=== PATIENT | female | born 1995 | race Native Hawaiian/Other Pacific Islander ===

== ENCOUNTER 2019-05-14 16:02 | Emergency (ER) | payer MEDICAID, OTHER ==
[~2019-05-14] VITALS: Ht 162.6 cm; Wt 72.7 kg
[2019-05-14] MEDS ORDERED: LIDOCAINE 1% 10 ML VIAL INJ ONE (21:30)
[2019-05-14] MEDS ORDERED: POVIDONE-IODINE 10% 15 ML SOLUTION UD TP ONE (21:30)
[2019-05-14] MEDS ORDERED: ACETAMINOPHEN 500 MG TABLET PO ONE (21:30)
[2019-05-14] MEDS ORDERED: SULFAMETHOX/TRIMETH DS 800-160 MG/TABLET PO ONE (21:30)
[2019-05-14] MEDS ORDERED: CEPHALEXIN MONOHYDRATE 500 MG CAPSULE PO ONE (21:30)
[2019-05-14 22:30] VITALS: BP 135/69
== END 2019-05-14 22:34 | disposition home or self-care (01) ==
LOC: EMS 16:06
DX: N75.0 Cyst of Bartholin's gland (principal)
CPT/HCPCS: 56405; 84703; 99284; J3490

== ENCOUNTER 2019-05-17 19:13 | Emergency (ER) | payer OTHER ==
[~2019-05-17] VITALS: Ht 162.6 cm; Wt 89.5 kg
[2019-05-17 22:23] VITALS: BP 118/70
== END 2019-05-17 23:10 | disposition home or self-care (01) ==
LOC: EMS 19:16
DX: N75.0 Cyst of Bartholin's gland (principal); Z48.00 Encounter for change or removal of nonsurgical wound dressing

== ENCOUNTER 2019-07-14 10:18 | Emergency (ER) | payer OTHER ==
[~2019-07-14] VITALS: Ht 162.6 cm; Wt 90.9 kg
[2019-07-14 10:25] VITALS: BP 129/83
== END 2019-07-14 11:51 | disposition home or self-care (01) ==
LOC: EMS 10:23
DX: K02.9 Dental caries, unspecified (principal)

== ENCOUNTER 2020-06-16 12:45 | Emergency (ER) | payer OTHER ==
[~2020-06-16] VITALS: Ht 162.6 cm; Wt 77.3 kg
[2020-06-16] MEDS ORDERED: IBUP-2759 PO (13:09)
[2020-06-16 13:22] VITALS: BP 117/55
== END 2020-06-16 18:19 | disposition home or self-care (01) ==
LOC: EMS 12:50
DX: N75.0 Cyst of Bartholin's gland (principal); F19.90 Other psychoactive substance use, unspecified, uncomplicated
CPT/HCPCS: 99283; Z7502

== ENCOUNTER 2021-11-10 01:52 | Emergency (ER) | payer OTHER ==
[~2021-11-10] VITALS: Ht 157.5 cm; Wt 81.0 kg
[~2021-11-10 01:52] MED LIST: IBUP-2759 PO
[2021-11-10 02:30] VITALS: BP 127/71
[2021-11-10] MEDS ORDERED: HYDROCODONE/ACETAMINOPHEN 5-325 MG TABLET PO ONE (02:45)
[2021-11-10] MEDS ORDERED: IBUP-1554 PO (02:51)
[2021-11-10] MEDS ORDERED: PENI500T2 PO (02:51)
[2021-11-10] MEDS ORDERED: HYDR-4723 PO (02:51)
== END 2021-11-10 03:08 | disposition home or self-care (01) ==
LOC: EMS 01:52
DX: K08.89 Other specified disorders of teeth and supporting structures (principal); F15.90 Other stimulant use, unspecified, uncomplicated; Z87.42 Personal history of other diseases of the female genital tract; Z98.890 Other specified postprocedural states
CPT/HCPCS: 99283

== ENCOUNTER 2021-12-25 21:57 | Emergency (ER) | payer OTHER ==
[~2021-12-25 21:57] MED LIST changes: +HYDR-4723 PO; +IBUP-1554 PO; -IBUP-2759 PO; +PENI500T2 PO
== END 2021-12-26 00:02 | disposition left against medical advice (07) ==
LOC: EMS 23:59
DX: R42 Dizziness and giddiness (principal); Z53.21 Procedure and treatment not carried out due to patient leaving prior to being seen by health care provider

== ENCOUNTER 2022-01-04 18:45 | Emergency (ER) | payer OTHER ==
[~2022-01-04] VITALS: Ht 162.6 cm; Wt 81.8 kg
[2022-01-04 19:25] VITALS: BP 116/74
[2022-01-04] MEDS ORDERED: LEVO1TAB89 PO (19:28)
== END 2022-01-04 22:36 | disposition left against medical advice (07) ==
LOC: EMS 18:50
DX: Z53.21 Procedure and treatment not carried out due to patient leaving prior to being seen by health care provider (principal)

== ENCOUNTER 2022-01-10 22:10 | Emergency (ER) | payer OTHER ==
[~2022-01-10] VITALS: Ht 162.6 cm; Wt 91.0 kg
[~2022-01-10 22:10] MED LIST changes: +LEVO1TAB89 PO; -PENI500T2 PO
[2022-01-10] MEDS ORDERED: SODIUM CHLORIDE 0.9% 1,000 ML IV ONE (22:30)
[2022-01-10] MEDS ORDERED: LOPERAMIDE HCL 2 MG CAPSULE PO ONE (22:30)
[2022-01-10] MEDS ORDERED: ONDANSETRON HCL 4 MG/2 ML VIAL IVP ONE (22:30)
[2022-01-10] MEDS ORDERED: KETOROLAC TROMETHAMINE 30 MG/ML VIAL IVP ONE (22:30)
[2022-01-10 22:47] LABS: BASOPHILS % (AUTO) 0.6 % (0.0-2.0); EOSINOPHILS % (AUTO) 0.3 % (1.0-6.0); HEMATOCRIT 36.2 % (36-46); HEMOGLOBIN 12.2 g/dL (12.0-16.0); LYMPHOCYTES # (AUTO) 2.1 K/uL (1.0-4.8); LYMPHOCYTES % (AUTO) 19.8 % (22.0-44.0); MEAN CORPUSCULAR HGB CONC 33.7 G/dL (31.0-37.0); MEAN CORPUSCULAR VOLUME 89 fL (80-100); MONOCYTES # (AUTO) 0.8 K/uL (0.1-1.0); MONOCYTES % (AUTO) 7.8 % (2.0-9.0); NEUTROPHILS # (AUTO) 7.6 K/uL (1.8-7.7); NEUTROPHILS % (AUTO) 71.5 % (40.0-70.0); PLATELET COUNT (AUTO) 385 K/uL (150-450); RED BLOOD CELL COUNT(AUTO) 4.06 MIL/uL (4.00-5.20); RED CELL DISTRIBUTION WIDTH 13.7 % (11.5-14.5)
[2022-01-10 22:56] LABS: ANION GAP 11 mmol/L (8-16); CALCIUM, TOTAL 8.6 mg/dL (8.8-10.5); CARBON DIOXIDE 26 mmol/L (22-29); CHLORIDE 104 mmol/L (98-107); CREATININE 0.81 mg/dL (0.60-1.30); GLOMERULAR FILTR. RATE CALC > 60 mL/min (>60); GLUCOSE,RANDOM 73 mg/dL (70-110); POTASSIUM 3.2 mmol/L (3.5-5.1); SODIUM SERUM 141 mmol/L (136-145); UREA NITROGEN, BLOOD 12 mg/dL (7-18)
[2022-01-10 23:08] LABS: ALANINE AMINOTRANSFERASE 26 U/L (12-78); ALBUMIN 3.6 g/dL (3.4-5.0); ALKALINE PHOSPHATASE 56 U/L (46-116); ASPARTATE AMINOTRANSFERASE 20 U/L (15-37); BILIRUBIN,TOTAL 0.4 mg/dL (0.1-1.0); HCG,QUANTITATIVE < 1 mIU/mL (0-6); LIPASE 124 U/L (73-393); TOTAL PROTEIN, SERUM 7.3 g/dL (6.4-8.2)
[2022-01-10] MEDS ORDERED: ONDA-104 PO (23:13)
[2022-01-10] MEDS ORDERED: LOPE-232 PO (23:13)
[2022-01-10 23:47] VITALS: BP 120/82
== END 2022-01-10 23:48 | disposition home or self-care (01) ==
LOC: EMS 22:11
DX: R10.13 Epigastric pain (principal); F22 Delusional disorders; F15.10 Other stimulant abuse, uncomplicated; F10.20 Alcohol dependence, uncomplicated; F17.210 Nicotine dependence, cigarettes, uncomplicated
CPT/HCPCS: 99284; 96374; 96361; 96375; 80053; 83690; 84702; 85025; 36415; J1885; J2405; J7030

== ENCOUNTER 2022-02-27 21:32 | Emergency (ER) | payer OTHER ==
[~2022-02-27] VITALS: Ht 162.6 cm; Wt 82.0 kg
[~2022-02-27 21:32] MED LIST changes: -HYDR-4723 PO; -IBUP-1554 PO; -LEVO1TAB89 PO; +LOPE-232 PO; +ONDA-104 PO
[2022-02-27 22:14] LABS: APPEARANCE,URINE CLEAR (CLEAR); BILIRUBIN,URINE NEGATIVE (NEGATIVE); GLUCOSE, URINE (UA) NEGATIVE (NEGATIVE); KETONES,URINE NEGATIVE (NEGATIVE); LEUKOCYTE ESTERASE ,URINE TRACE (NEGATIVE); NITRATE,URINE POSITIVE (NEGATIVE); OCCULT BLOOD,URINE MODERATE (NEGATIVE); PROTEIN,URINE 30-70 mg/dL (NEGATIVE); SPECIFIC GRAVITIY, URINE 1.031 (1.003-1.030)
[2022-02-27 22:15] LABS: EOSINOPHILS % (AUTO) 0.3 % (1.0-6.0); HEMOGLOBIN 12.9 g/dL (12.0-16.0); LYMPHOCYTES # (AUTO) 2.6 K/uL (1.0-4.8); LYMPHOCYTES % (AUTO) 34.3 % (22.0-44.0); MEAN CORPUSCULAR HEMOGLOBIN 30.6 pg (26.0-34.0); MEAN CORPUSCULAR HGB CONC 33.1 G/dL (31.0-37.0); MEAN CORPUSCULAR VOLUME 92 fL (80-100); MONOCYTES # (AUTO) 0.4 K/uL (0.1-1.0); MONOCYTES % (AUTO) 5.8 % (2.0-9.0); NEUTROPHILS # (AUTO) 4.5 K/uL (1.8-7.7); NEUTROPHILS % (AUTO) 58.6 % (40.0-70.0); PLATELET COUNT (AUTO) 380 K/uL (150-450); RED BLOOD CELL COUNT(AUTO) 4.23 MIL/uL (4.00-5.20); RED CELL DISTRIBUTION WIDTH 14.6 % (11.5-14.5)
[2022-02-27 22:26] LABS: ANION GAP 8 mmol/L (8-16); CALCIUM, TOTAL 9.3 mg/dL (8.8-10.5); CARBON DIOXIDE 31 mmol/L (22-29); CHLORIDE 102 mmol/L (98-107); CREATININE 1.01 mg/dL (0.60-1.30); GLUCOSE,RANDOM 75 mg/dL (70-110); POTASSIUM 3.4 mmol/L (3.5-5.1); SODIUM SERUM 141 mmol/L (136-145); UREA NITROGEN, BLOOD 11 mg/dL (7-18)
[2022-02-27 22:29] LABS: GLOMERULAR FILTR. RATE CALC > 60 mL/min (>60)
[2022-02-27 22:36] LABS: ALANINE AMINOTRANSFERASE 15 U/L (12-78); ALKALINE PHOSPHATASE 76 U/L (46-116); ASPARTATE AMINOTRANSFERASE 11 U/L (15-37); BILIRUBIN,TOTAL 0.3 mg/dL (0.1-1.0); HCG,QUANTITATIVE < 1 mIU/mL (0-6); LIPASE 110 U/L (73-393); TOTAL PROTEIN, SERUM 8.2 g/dL (6.4-8.2)
[2022-02-27 22:47] LABS: BACTERIA,URINE Many /HPF (None Seen)
[2022-02-27 22:48] LABS: CALCIUM OXALATE CRYSTALS,UR Rare /LPF (None Seen); RBC,URINE 0-2 /HPF (0-2)
[2022-02-27 23:23] LABS: AMPHET/METH SCREEN,URINE POSITIVE (NEGATIVE); BARBITURATE SCREEN, URINE NEGATIVE (NEGATIVE); BENZODIAZEPINES SCREEN,URINE NEGATIVE (NEGATIVE); CANNABINOID SCREEN,URINE POSITIVE (NEGATIVE); COCAINE SCREEN,URINE NEGATIVE (NEGATIVE); METHADONE SCREEN, URINE NEGATIVE (NEGATIVE); OPIATE SCREEN,URINE NEGATIVE (NEGATIVE); PHENCYCLIDINE SCREEN,URINE NEGATIVE (NEGATIVE)
[2022-02-27 23:30] VITALS: BP 111/68
[2022-02-27] MEDS ORDERED: CEPH-558 PO (23:43)
[2022-02-27] MEDS ORDERED: DOXY-354 PO (23:43)
[2022-02-27] MEDS ORDERED: METR250 PO (23:43)
[2022-02-27] MEDS ORDERED: ACET-66 PO (23:44)
== END 2022-02-28 00:18 | disposition home or self-care (01) ==
LOC: EMS 21:32
DX: F15.10 Other stimulant abuse, uncomplicated (principal); N39.0 Urinary tract infection, site not specified; F10.20 Alcohol dependence, uncomplicated; F12.90 Cannabis use, unspecified, uncomplicated; F17.210 Nicotine dependence, cigarettes, uncomplicated
CPT/HCPCS: 80053; 81001; 83690; 84702; 84703; 85025; 87086; 99283

== ENCOUNTER 2022-04-19 16:49 | Inpatient (IN) | payer MEDICAID, OTHER ==
[~2022-04-19] VITALS: Ht 162.6 cm; Wt 86.4 kg
[~2022-04-19 16:49] MED LIST changes: +ACET-66 PO; +CEPH-558 PO; +DOXY-354 PO; +METR250 PO
[2022-04-19 18:07] LABS: BASOPHILS % (AUTO) 0.3 % (0.0-2.0); EOSINOPHILS % (AUTO) 0.1 % (1.0-6.0); HEMATOCRIT 40.6 % (36-46); HEMOGLOBIN 13.1 g/dL (12.0-16.0); LYMPHOCYTES # (AUTO) 1.7 K/uL (1.0-4.8); LYMPHOCYTES % (AUTO) 12.7 % (22.0-44.0); MEAN CORPUSCULAR HEMOGLOBIN 29.5 pg (26.0-34.0); MEAN CORPUSCULAR HGB CONC 32.3 G/dL (31.0-37.0); MEAN CORPUSCULAR VOLUME 92 fL (80-100); MONOCYTES # (AUTO) 0.5 K/uL (0.1-1.0); MONOCYTES % (AUTO) 3.6 % (2.0-9.0); NEUTROPHILS # (AUTO) 11.1 K/uL (1.8-7.7); NEUTROPHILS % (AUTO) 83.3 % (40.0-70.0); PLATELET COUNT (AUTO) 419 K/uL (150-450); RED BLOOD CELL COUNT(AUTO) 4.43 MIL/uL (4.00-5.20); RED CELL DISTRIBUTION WIDTH 14.4 % (11.5-14.5)
[2022-04-19 18:17] LABS: ANION GAP 5 mmol/L (8-16); CALCIUM, TOTAL 9.6 mg/dL (8.8-10.5); CARBON DIOXIDE 31 mmol/L (22-29); CHLORIDE 99 mmol/L (98-107); CREATININE 0.98 mg/dL (0.60-1.30); GLOMERULAR FILTR. RATE CALC > 60 mL/min (>60); GLUCOSE,RANDOM 130 mg/dL (70-110); POTASSIUM 4.1 mmol/L (3.5-5.1); SODIUM SERUM 135 mmol/L (136-145); UREA NITROGEN, BLOOD 13 mg/dL (7-18)
[2022-04-19 18:23] LABS: ACETAMINOPHEN < 2 mcg/mL (10-30); ALANINE AMINOTRANSFERASE 18 U/L (12-78); ALBUMIN 4.4 g/dL (3.4-5.0); ALKALINE PHOSPHATASE 81 U/L (46-116); ASPARTATE AMINOTRANSFERASE 15 U/L (15-37); BILIRUBIN,TOTAL 0.5 mg/dL (0.1-1.0); TOTAL PROTEIN, SERUM 8.9 g/dL (6.4-8.2)
[2022-04-19 18:38] LABS: COVID AG,FIA SOURCE NASOPHARYNGEAL
[2022-04-19 18:46] LABS: SALICYLATE 1.2 mg/dL (2.8-20.0)
[2022-04-19] MEDS ORDERED: OLANZapine 5 MG TABLET PO ONE (20:30)
[2022-04-19] MEDS ORDERED: LORazepam 1 MG TABLET PO ONE (20:30)
[2022-04-19] MEDS ORDERED: LORazepam 2 MG TABLET PO PRN (21:15)
[2022-04-19] MEDS ORDERED: HALOPERIDOL 5 MG TABLET PO PRN (21:15)
[2022-04-19] MEDS ORDERED: ZOLPIDEM TARTRATE 10 MG TABLET PO PRN (21:15)
[2022-04-20 01:45] VITALS: BP 145/80
[2022-04-20] MEDS ORDERED: INFLUENZA VIRUS VACCINE QVS 2022-23 (6MO+)/PF 60 MCG/0.5 ML SYRINGE IM. ONE (02:15)
[2022-04-20] MEDS ORDERED: MAG HYDROX/AL HYDROX/SIMETH ES 30 ML SUSPENSION UDCUP PO PRN (10:00)
[2022-04-20] MEDS ORDERED: ACETAMINOPHEN 325 MG TABLET PO PRN (10:00)
[2022-04-20] MEDS ORDERED: GuaiFENesin/D-METHORPHAN [SUGAR-FREE] 200-20MG/10 ML SYRUP UDCUP PO PRN (10:00)
[2022-04-20] MEDS ORDERED: LOPERAMIDE HCL 2 MG CAPSULE PO PRN (10:00)
[2022-04-20] MEDS ORDERED: PROMETHAZINE HCL 25 MG TABLET PO PRN (10:00)
[2022-04-20] MEDS ORDERED: HydrOXYzine PAMOATE 50 MG CAPSULE PO PRN (10:00)
[2022-04-20] MEDS ORDERED: MAGNESIUM HYDROXIDE SUSPENSION 30 ML UDCUP PO PRN (10:00)
[2022-04-20] MEDS ORDERED: TUBERCULIN, PURIFIED PROTEIN DERIVATIVE 5 TU/0.1 ML SYRINGE ID ONE (10:00)
[2022-04-20] MEDS: OLANZapine 10 MG TABLET PO PRN (13:52)
[2022-04-20] MEDS: THIAMINE 100 MG TABLET PO SCH (16:48)
[2022-04-20 16:49] VITALS: BP 98/63
[2022-04-20] MEDS: MELATONIN 5 MG TABLET PO SCH (20:47)
[2022-04-20] MEDS ORDERED: OLANZapine 5 MG RAPDIS TABLET PO SCH (21:00)
[2022-04-21 08:00] VITALS: BP 94/53
[2022-04-21] MEDS: THIAMINE 100 MG TABLET PO SCH ×2 (08:26→16:28)
[2022-04-21] MEDS: FLUoxetine HCL 20 MG CAPSULE PO SCH (08:26)
[2022-04-21] MEDS: MULTIVITAMINS WITH MINERALS, THERAPEUTIC TABLET PO SCH (08:26)
[2022-04-21] MEDS: NALTREXONE HCL 50 MG TABLET PO SCH (08:26)
[2022-04-21] MEDS: OMEGA-3/DHA/EPA/FISH OIL 1,000 MG CAPSULE PO SCH (08:26)
[2022-04-21] MEDS: FOLIC ACID 1 MG TABLET PO SCH (08:26)
[2022-04-21 08:38] LABS: HEMOGLOBIN A1C 5.4 % (3.8-5.6)
[2022-04-21 08:51] LABS: CHOL/HDL RATIO 3.3 (3.9-5.7); FREE T4 (FREE THYROXINE) 1.01 ng/dL (0.76-1.46); THYROID STIMULATING HORMONE 0.66 uIU/mL (0.36-3.74)
[2022-04-21] MEDS: OLANZapine 10 MG RAPDIS TABLET PO SCH (20:35)
[2022-04-21] MEDS: MELATONIN 5 MG TABLET PO SCH (20:35)
[2022-04-22] MEDS: NALTREXONE HCL 50 MG TABLET PO SCH ×2 (08:45→09:00)
[2022-04-22] MEDS: OMEGA-3/DHA/EPA/FISH OIL 1,000 MG CAPSULE PO SCH ×2 (08:46→09:00)
[2022-04-22] MEDS: FLUoxetine HCL 20 MG CAPSULE PO SCH ×2 (08:46→09:00)
[2022-04-22] MEDS: THIAMINE 100 MG TABLET PO SCH ×4 (08:46→17:00)
[2022-04-22] MEDS: FOLIC ACID 1 MG TABLET PO SCH ×2 (08:46→09:00)
[2022-04-22] MEDS: MULTIVITAMINS WITH MINERALS, THERAPEUTIC TABLET PO SCH ×2 (08:46→09:00)
[2022-04-22] MEDS: OLANZapine 10 MG RAPDIS TABLET PO SCH (20:33)
[2022-04-22] MEDS: MELATONIN 5 MG TABLET PO SCH (20:34)
[2022-04-23 08:00] VITALS: BP 98/59
[2022-04-23] MEDS: OMEGA-3/DHA/EPA/FISH OIL 1,000 MG CAPSULE PO SCH (08:13)
[2022-04-23] MEDS: FOLIC ACID 1 MG TABLET PO SCH (08:13)
[2022-04-23] MEDS: NALTREXONE HCL 50 MG TABLET PO SCH (08:15)
[2022-04-23] MEDS: MULTIVITAMINS WITH MINERALS, THERAPEUTIC TABLET PO SCH (08:17)
[2022-04-23] MEDS: FLUoxetine HCL 20 MG CAPSULE PO SCH (08:17)
[2022-04-23] MEDS: THIAMINE 100 MG TABLET PO SCH ×2 (08:17→16:31)
[2022-04-23 16:07] VITALS: BP 105/52
[2022-04-23] MEDS: MELATONIN 5 MG TABLET PO SCH (20:17)
[2022-04-23] MEDS: OLANZapine 10 MG RAPDIS TABLET PO SCH (20:19)
[2022-04-24 08:01] VITALS: BP 129/79
[2022-04-24] MEDS: FOLIC ACID 1 MG TABLET PO SCH (08:15)
[2022-04-24] MEDS: OMEGA-3/DHA/EPA/FISH OIL 1,000 MG CAPSULE PO SCH (08:15)
[2022-04-24] MEDS: FLUoxetine HCL 20 MG CAPSULE PO SCH (08:15)
[2022-04-24] MEDS: NALTREXONE HCL 50 MG TABLET PO SCH (08:15)
[2022-04-24] MEDS: THIAMINE 100 MG TABLET PO SCH ×2 (08:15→16:01)
[2022-04-24] MEDS: MULTIVITAMINS WITH MINERALS, THERAPEUTIC TABLET PO SCH (08:15)
[2022-04-24 16:06] VITALS: BP 108/63
[2022-04-24] MEDS: OLANZapine 10 MG RAPDIS TABLET PO SCH (20:09)
[2022-04-24] MEDS: MELATONIN 5 MG TABLET PO SCH (20:10)
[2022-04-25 06:00] LABS: COVID AG,FIA SOURCE NASAL SWAB
[2022-04-25 08:20] VITALS: BP 97/60
[2022-04-25] MEDS: FLUoxetine HCL 20 MG CAPSULE PO SCH (09:10)
[2022-04-25] MEDS: THIAMINE 100 MG TABLET PO SCH ×2 (09:10→17:09)
[2022-04-25] MEDS: NALTREXONE HCL 50 MG TABLET PO SCH (09:10)
[2022-04-25] MEDS: OMEGA-3/DHA/EPA/FISH OIL 1,000 MG CAPSULE PO SCH (09:10)
[2022-04-25] MEDS: FOLIC ACID 1 MG TABLET PO SCH (09:10)
[2022-04-25] MEDS: MULTIVITAMINS WITH MINERALS, THERAPEUTIC TABLET PO SCH (09:10)
[2022-04-25 16:02] VITALS: BP 106/65
[2022-04-25 20:08] VITALS: BP 130/86
[2022-04-25] MEDS: MELATONIN 5 MG TABLET PO SCH (20:35)
[2022-04-25] MEDS: OLANZapine 10 MG RAPDIS TABLET PO SCH (20:35)
[2022-04-26 08:15] VITALS: BP 98/62
[2022-04-26] MEDS: OMEGA-3/DHA/EPA/FISH OIL 1,000 MG CAPSULE PO SCH (09:08)
[2022-04-26] MEDS: MULTIVITAMINS WITH MINERALS, THERAPEUTIC TABLET PO SCH (09:08)
[2022-04-26] MEDS: THIAMINE 100 MG TABLET PO SCH ×2 (09:08→16:50)
[2022-04-26] MEDS: FOLIC ACID 1 MG TABLET PO SCH (09:08)
[2022-04-26] MEDS: NALTREXONE HCL 50 MG TABLET PO SCH (09:09)
[2022-04-26] MEDS: FLUoxetine HCL 20 MG CAPSULE PO SCH (09:09)
[2022-04-26 16:05] VITALS: BP 96/53
[2022-04-26] MEDS: OLANZapine 10 MG RAPDIS TABLET PO SCH (21:03)
[2022-04-26] MEDS: MELATONIN 5 MG TABLET PO SCH (21:16)
[2022-04-27 08:23] VITALS: BP 132/77
[2022-04-27] MEDS: FLUoxetine HCL 20 MG CAPSULE PO SCH (08:29)
[2022-04-27] MEDS: NALTREXONE HCL 50 MG TABLET PO SCH (08:29)
[2022-04-27] MEDS: MULTIVITAMINS WITH MINERALS, THERAPEUTIC TABLET PO SCH (08:29)
[2022-04-27] MEDS: FOLIC ACID 1 MG TABLET PO SCH (08:30)
[2022-04-27] MEDS: THIAMINE 100 MG TABLET PO SCH ×2 (08:30→16:59)
[2022-04-27] MEDS: OMEGA-3/DHA/EPA/FISH OIL 1,000 MG CAPSULE PO SCH (08:30)
[2022-04-27 16:23] VITALS: BP 95/65
[2022-04-27] MEDS: MELATONIN 5 MG TABLET PO SCH (21:02)
[2022-04-27] MEDS: OLANZapine 10 MG RAPDIS TABLET PO SCH (21:02)
[2022-04-27] MEDS ORDERED: FLUO20CA36 PO (22:57)
[2022-04-27] MEDS ORDERED: OLAN10TA26 PO (22:57)
[2022-04-27] MEDS ORDERED: MELA5TAB40 PO (22:57)
[2022-04-27] MEDS ORDERED: OMEG-135 PO (22:57)
[2022-04-27] MEDS ORDERED: NALT50TA PO (22:57)
[2022-04-28] MEDS: NALTREXONE HCL 50 MG TABLET PO SCH (10:02)
[2022-04-28] MEDS: FOLIC ACID 1 MG TABLET PO SCH (10:02)
[2022-04-28] MEDS: FLUoxetine HCL 20 MG CAPSULE PO SCH (10:02)
[2022-04-28] MEDS: OLANZapine 10 MG TABLET PO PRN (10:03)
[2022-04-28] MEDS: THIAMINE 100 MG TABLET PO SCH (10:03)
[2022-04-28] MEDS: MULTIVITAMINS WITH MINERALS, THERAPEUTIC TABLET PO SCH (10:04)
[2022-04-28] MEDS: OMEGA-3/DHA/EPA/FISH OIL 1,000 MG CAPSULE PO SCH (10:06)
== END 2022-04-28 13:45 | disposition home or self-care (01) | DRG 750 ==
LOC: EMS 16:53 → 3EC 04-20 01:59
PROVIDERS: ADMIT Psychiatry & Neurology Psychiatry; ATTEND Psychiatry & Neurology Psychiatry
DX: F25.9 Schizoaffective disorder, unspecified (principal); R45.851 Suicidal ideations; Z91.199 Patient's noncompliance with other medical treatment and regimen due to unspecified reason; D72.829 Elevated white blood cell count, unspecified; E87.6 Hypokalemia; F15.90 Other stimulant use, unspecified, uncomplicated; F17.210 Nicotine dependence, cigarettes, uncomplicated; I10 Essential (primary) hypertension; F32.A Depression, unspecified; Z55.9 Problems related to education and literacy, unspecified; Z59.9 Problem related to housing and economic circumstances, unspecified; Z63.9 Problem related to primary support group, unspecified; Z65.3 Problems related to other legal circumstances; Z79.899 Other long term (current) drug therapy
CPT/HCPCS: 80053; 80061; 83036; 84439; 84443; 84703; 85025; 86592; 93005; 99285; G0480; G0481; Q9967

== ENCOUNTER 2022-04-30 20:32 | Emergency (ER) | payer MEDICAID ==
[~2022-04-30 20:32] MED LIST changes: -ACET-66 PO; -CEPH-558 PO; -DOXY-354 PO; +FLUO20CA36 PO; -LOPE-232 PO; +MELA5TAB40 PO; -METR250 PO; +NALT50TA PO; +OLAN10TA26 PO; +OMEG-135 PO; -ONDA-104 PO
== END 2022-04-30 20:37 | disposition left against medical advice (07) ==
LOC: EMS 20:37
DX: K08.89 Other specified disorders of teeth and supporting structures (principal); Z53.21 Procedure and treatment not carried out due to patient leaving prior to being seen by health care provider

== ENCOUNTER 2022-05-06 02:14 | Inpatient (IN) | payer MEDICAID, OTHER ==
[~2022-05-06] VITALS: Ht 162.6 cm; Wt 83.9 kg
[2022-05-06 03:04] LABS: EOSINOPHILS % (AUTO) 1.1 % (1.0-6.0); HEMATOCRIT 35.1 % (36-46); HEMOGLOBIN 11.5 g/dL (12.0-16.0); LYMPHOCYTES # (AUTO) 2.7 K/uL (1.0-4.8); LYMPHOCYTES % (AUTO) 34.5 % (22.0-44.0); MEAN CORPUSCULAR HGB CONC 32.8 G/dL (31.0-37.0); MEAN CORPUSCULAR VOLUME 91 fL (80-100); MONOCYTES # (AUTO) 0.6 K/uL (0.1-1.0); MONOCYTES % (AUTO) 7.4 % (2.0-9.0); NEUTROPHILS # (AUTO) 4.3 K/uL (1.8-7.7); PLATELET COUNT (AUTO) 330 K/uL (150-450); RED BLOOD CELL COUNT(AUTO) 3.84 MIL/uL (4.00-5.20)
[2022-05-06 03:11] LABS: ANION GAP 6 mmol/L (8-16); CARBON DIOXIDE 29 mmol/L (22-29); CHLORIDE 105 mmol/L (98-107); CREATININE 0.67 mg/dL (0.60-1.30); GLUCOSE,RANDOM 101 mg/dL (70-110); POTASSIUM 3.2 mmol/L (3.5-5.1); SODIUM SERUM 140 mmol/L (136-145); UREA NITROGEN, BLOOD 12 mg/dL (7-18)
[2022-05-06 03:17] LABS: GLOMERULAR FILTR. RATE CALC > 60 mL/min (>60)
[2022-05-06 03:25] LABS: ALANINE AMINOTRANSFERASE 73 U/L (12-78); ALBUMIN 3.7 g/dL (3.4-5.0); ALKALINE PHOSPHATASE 81 U/L (46-116); ASPARTATE AMINOTRANSFERASE 29 U/L (15-37); BILIRUBIN,TOTAL 0.2 mg/dL (0.1-1.0); TOTAL PROTEIN, SERUM 7.5 g/dL (6.4-8.2)
[2022-05-06 03:26] LABS: COVID AG,FIA SOURCE NASOPHARYNGEAL
[2022-05-06 03:33] LABS: ACETAMINOPHEN < 2 mcg/mL (10-30); SALICYLATE 1.2 mg/dL (2.8-20.0)
[2022-05-06 04:11] LABS: AMPHET/METH SCREEN,URINE POSITIVE (NEGATIVE); BARBITURATE SCREEN, URINE NEGATIVE (NEGATIVE); BENZODIAZEPINES SCREEN,URINE NEGATIVE (NEGATIVE); CANNABINOID SCREEN,URINE POSITIVE (NEGATIVE); COCAINE SCREEN,URINE NEGATIVE (NEGATIVE); METHADONE SCREEN, URINE NEGATIVE (NEGATIVE); OPIATE SCREEN,URINE NEGATIVE (NEGATIVE)
[2022-05-06 04:15] LABS: PHENCYCLIDINE SCREEN,URINE NEGATIVE (NEGATIVE)
[2022-05-06] MEDS ORDERED: ZOLPIDEM TARTRATE 10 MG TABLET PO PRN (04:30)
[2022-05-06 04:59] LABS: APPEARANCE,URINE CLEAR (CLEAR); BILIRUBIN,URINE NEGATIVE (NEGATIVE); GLUCOSE, URINE (UA) NEGATIVE (NEGATIVE); KETONES,URINE NEGATIVE (NEGATIVE); LEUKOCYTE ESTERASE ,URINE NEGATIVE (NEGATIVE); NITRATE,URINE NEGATIVE (NEGATIVE); OCCULT BLOOD,URINE NEGATIVE (NEGATIVE); PH,URINE 6.5 (5.0-8.0); PROTEIN,URINE NEGATIVE (NEGATIVE); SPECIFIC GRAVITIY, URINE 1.013 (1.003-1.030); UROBILINOGEN,URINE <=1.0 mg/dL (<=1.0)
[2022-05-06] MEDS ORDERED: MAGNESIUM HYDROXIDE SUSPENSION 30 ML UDCUP PO PRN (08:15)
[2022-05-06] MEDS ORDERED: LOPERAMIDE HCL 2 MG CAPSULE PO PRN (08:15)
[2022-05-06] MEDS ORDERED: CloNIDine HCL 0.1 MG TABLET PO PRN (08:15)
[2022-05-06] MEDS ORDERED: IBUPROFEN 600 MG TABLET PO PRN (08:15)
[2022-05-06] MEDS ORDERED: PETROLATUM,WHITE 28 GM JELLY TP PRN (08:15)
[2022-05-06] MEDS ORDERED: ACETAMINOPHEN 325 MG TABLET PO PRN (08:15)
[2022-05-06] MEDS ORDERED: ALBUTEROL SULFATE HFA 90 MCG/PUFF 8 GM INHALER IH PRN (08:15)
[2022-05-06] MEDS ORDERED: MAG HYDROX/AL HYDROX/SIMETH ES 30 ML SUSPENSION UDCUP PO PRN (08:15)
[2022-05-06] MEDS ORDERED: OMEPRAZOLE 20 MG CAPSULE PO PRN (08:15)
[2022-05-06] MEDS ORDERED: ONDANSETRON HCL 4 MG TABLET PO PRN (08:15)
[2022-05-06] MEDS ORDERED: BENZOCAINE/MENTHOL LOZENGE PO PRN (08:15)
[2022-05-06] MEDS ORDERED: DOCUSATE SODIUM 100 MG CAPSULE PO PRN (08:15)
[2022-05-06] MEDS ORDERED: POTASSIUM CHLORIDE 20 MEQ ER TABLET PO ONE (08:15)
[2022-05-06] MEDS ORDERED: BACITRACIN 28 GM OINTMENT TP PRN (08:15)
[2022-05-06 09:47] VITALS: BP 111/81
[2022-05-06] MEDS: HALOPERIDOL 5 MG TABLET PO PRN (09:49)
[2022-05-06] MEDS: LORazepam 2 MG TABLET PO PRN (09:49)
[2022-05-06] MEDS ORDERED: INFLUENZA VIRUS VACCINE QVS 2022-23 (6MO+)/PF 60 MCG/0.5 ML SYRINGE IM. ONE (12:45)
[2022-05-06 16:48] VITALS: BP 106/65
[2022-05-07 08:38] VITALS: BP 118/64
[2022-05-07 20:03] VITALS: BP 113/65
[2022-05-07] MEDS: RisperiDONE 2 MG TABLET PO SCH (20:45)
[2022-05-08] MEDS: RisperiDONE 2 MG TABLET PO SCH ×2 (08:00→20:21)
[2022-05-08 08:35] VITALS: BP 116/74
[2022-05-08 08:36] VITALS: BP 116/74
[2022-05-08 17:02] VITALS: BP 102/59
[2022-05-08 20:10] VITALS: BP 107/60
[2022-05-09] MEDS: RisperiDONE 2 MG TABLET PO SCH ×2 (08:40→20:07)
[2022-05-09 09:38] VITALS: BP 117/64
[2022-05-09] MEDS: LORazepam 2 MG TABLET PO PRN (14:25)
[2022-05-09] MEDS: HALOPERIDOL 5 MG TABLET PO PRN (14:25)
[2022-05-09 20:48] VITALS: BP 106/66
[2022-05-10 08:08] LABS: HEMATOCRIT 39.1 % (36-46); HEMOGLOBIN 12.7 g/dL (12.0-16.0); MEAN CORPUSCULAR HEMOGLOBIN 29.7 pg (26.0-34.0); MEAN CORPUSCULAR HGB CONC 32.4 G/dL (31.0-37.0); MEAN CORPUSCULAR VOLUME 91 fL (80-100); PLATELET COUNT (AUTO) 373 K/uL (150-450); RED BLOOD CELL COUNT(AUTO) 4.28 MIL/uL (4.00-5.20); RED CELL DISTRIBUTION WIDTH 14.4 % (11.5-14.5)
[2022-05-10 08:18] LABS: HEMOGLOBIN A1C 5.7 % (3.8-5.6)
[2022-05-10] MEDS: RisperiDONE 2 MG TABLET PO SCH ×2 (08:28→20:10)
[2022-05-10 08:33] LABS: BAND NEUTROPHILS % (MANUAL) 1 % (0-5); EOSINOPHILS % (MANUAL) 6 % (1-6); LYMPHOCYTES % (MANUAL) 29 % (22-44); MONOCYTES % (MANUAL) 4 % (2-9); SEGMENTED NEUTROPHILS % 60 % (40-70)
[2022-05-10 08:40] LABS: ALANINE AMINOTRANSFERASE 54 U/L (12-78); ALBUMIN 3.7 g/dL (3.4-5.0); ALKALINE PHOSPHATASE 74 U/L (46-116); ANION GAP 7 mmol/L (8-16); ASPARTATE AMINOTRANSFERASE 43 U/L (15-37); BILIRUBIN,TOTAL 0.2 mg/dL (0.1-1.0); CALCIUM, TOTAL 9.7 mg/dL (8.8-10.5); CARBON DIOXIDE 29 mmol/L (22-29); CHLORIDE 103 mmol/L (98-107); CHOL/HDL RATIO 3.4 (3.9-5.7); CHOLESTEROL 200 mg/dL (131-200); CREATININE 0.66 mg/dL (0.60-1.30); FREE T4 (FREE THYROXINE) 0.62 ng/dL (0.76-1.46); GLUCOSE,RANDOM 81 mg/dL (70-110); HDL CHOLESTEROL 58 mg/dL (40-60); LDL CHOL (CALC.) 122 mg/dL (0-130); POTASSIUM 4.6 mmol/L (3.5-5.1); SODIUM SERUM 139 mmol/L (136-145); THYROID STIMULATING HORMONE 0.49 uIU/mL (0.36-3.74); TRIGLYCERIDES 100 mg/dL (15-150); UREA NITROGEN, BLOOD 14 mg/dL (7-18)
[2022-05-10 08:42] LABS: GLOMERULAR FILTR. RATE CALC > 60 mL/min (>60)
[2022-05-10 20:39] VITALS: BP 123/65
[2022-05-11] MEDS: RisperiDONE 2 MG TABLET PO SCH ×2 (08:16→20:20)
[2022-05-11 08:23] VITALS: BP 125/73
[2022-05-12 04:02] VITALS: BP 118/66
[2022-05-12 08:07] LABS: HEMATOCRIT 40.2 % (36-46); HEMOGLOBIN 12.7 g/dL (12.0-16.0); MEAN CORPUSCULAR HEMOGLOBIN 29.2 pg (26.0-34.0); MEAN CORPUSCULAR HGB CONC 31.7 G/dL (31.0-37.0); MEAN CORPUSCULAR VOLUME 92 fL (80-100); PLATELET COUNT (AUTO) 366 K/uL (150-450); RED BLOOD CELL COUNT(AUTO) 4.36 MIL/uL (4.00-5.20); RED CELL DISTRIBUTION WIDTH 14.2 % (11.5-14.5)
[2022-05-12] MEDS: RisperiDONE 2 MG TABLET PO SCH (08:18)
[2022-05-12 08:22] LABS: BAND NEUTROPHILS % (MANUAL) 1 % (0-5); EOSINOPHILS % (MANUAL) 4 % (1-6); LYMPHOCYTES % (MANUAL) 25 % (22-44); MONOCYTES % (MANUAL) 3 % (2-9); SEGMENTED NEUTROPHILS % 67 % (40-70)
[2022-05-12 08:24] LABS: HEMOGLOBIN A1C 5.6 % (3.8-5.6)
[2022-05-12 08:30] VITALS: BP 123/73
[2022-05-12 08:33] LABS: ALANINE AMINOTRANSFERASE 81 U/L (12-78); ALBUMIN 3.7 g/dL (3.4-5.0); ALKALINE PHOSPHATASE 73 U/L (46-116); ANION GAP 7 mmol/L (8-16); ASPARTATE AMINOTRANSFERASE 49 U/L (15-37); BILIRUBIN,TOTAL 0.2 mg/dL (0.1-1.0); CALCIUM, TOTAL 9.4 mg/dL (8.8-10.5); CARBON DIOXIDE 29 mmol/L (22-29); CHLORIDE 102 mmol/L (98-107); CHOL/HDL RATIO 3.7 (3.9-5.7); CHOLESTEROL 202 mg/dL (131-200); CREATININE 0.63 mg/dL (0.60-1.30); FREE T4 (FREE THYROXINE) 0.63 ng/dL (0.76-1.46); GLUCOSE,RANDOM 81 mg/dL (70-110); HDL CHOLESTEROL 54 mg/dL (40-60); LDL CHOL (CALC.) 118 mg/dL (0-130); POTASSIUM 4.3 mmol/L (3.5-5.1); SODIUM SERUM 138 mmol/L (136-145); THYROID STIMULATING HORMONE 0.67 uIU/mL (0.36-3.74); TOTAL PROTEIN, SERUM 7.9 g/dL (6.4-8.2); TRIGLYCERIDES 151 mg/dL (15-150); UREA NITROGEN, BLOOD 14 mg/dL (7-18)
[2022-05-12 08:35] LABS: GLOMERULAR FILTR. RATE CALC > 60 mL/min (>60)
[2022-05-12] MEDS ORDERED: RISP2TAB86 PO (12:07)
== END 2022-05-12 13:00 | disposition home or self-care (01) | DRG 750 ==
LOC: EMS 02:15 → B3A 05:00 → B2S 09:06 → B3A 05-07 19:14
PROVIDERS: ADMIT Psychiatry & Neurology Psychiatry; ATTEND Psychiatry & Neurology Psychiatry
DX: F25.9 Schizoaffective disorder, unspecified (principal); R45.851 Suicidal ideations; F32.A Depression, unspecified; F41.9 Anxiety disorder, unspecified; G47.00 Insomnia, unspecified; E87.6 Hypokalemia; Z53.20 Procedure and treatment not carried out because of patient's decision for unspecified reasons; K59.00 Constipation, unspecified; Z28.21 Immunization not carried out because of patient refusal; Z87.891 Personal history of nicotine dependence
CPT/HCPCS: 80053; 80061; 81003; 83036; 84439; 84443; 85007; 85025; 85027; 99285; G0480; G0481

== ENCOUNTER 2022-05-17 21:40 | Emergency (ER) | payer MEDICAID, OTHER ==
[~2022-05-17] VITALS: Ht 162.6 cm; Wt 86.0 kg
[~2022-05-17 21:40] MED LIST changes: -FLUO20CA36 PO; -MELA5TAB40 PO; -NALT50TA PO; -OLAN10TA26 PO; -OMEG-135 PO; +RISP2TAB86 PO
[2022-05-17] MEDS ORDERED: ACET-66 PO (22:24)
[2022-05-17] MEDS ORDERED: IBUP-1554 PO (22:24)
[2022-05-17] MEDS ORDERED: PENI500T2 PO (22:24)
[2022-05-17 23:12] VITALS: BP 119/52
== END 2022-05-17 23:21 | disposition home or self-care (01) ==
LOC: EMS 21:45
DX: K08.89 Other specified disorders of teeth and supporting structures (principal); K04.7 Periapical abscess without sinus; F25.9 Schizoaffective disorder, unspecified; F10.20 Alcohol dependence, uncomplicated; F12.90 Cannabis use, unspecified, uncomplicated; F15.10 Other stimulant abuse, uncomplicated; F17.210 Nicotine dependence, cigarettes, uncomplicated
CPT/HCPCS: 99283; Z7502

== ENCOUNTER 2022-06-01 22:45 | Emergency (ER) | payer OTHER ==
[~2022-06-01] VITALS: Ht 170.2 cm; Wt 100.0 kg
[~2022-06-01 22:45] MED LIST changes: +ACET-66 PO; +IBUP-1554 PO; +PENI500T2 PO
[2022-06-01 23:29] LABS: BASOPHILS % (AUTO) 0.5 % (0.0-2.0); EOSINOPHILS % (AUTO) 0.4 % (1.0-6.0); HEMATOCRIT 36.2 % (36-46); HEMOGLOBIN 12.1 g/dL (12.0-16.0); LYMPHOCYTES # (AUTO) 2.6 K/uL (1.0-4.8); MEAN CORPUSCULAR HEMOGLOBIN 30.1 pg (26.0-34.0); MEAN CORPUSCULAR HGB CONC 33.5 G/dL (31.0-37.0); MEAN CORPUSCULAR VOLUME 90 fL (80-100); MONOCYTES # (AUTO) 0.7 K/uL (0.1-1.0); NEUTROPHILS % (AUTO) 64.1 % (40.0-70.0); PLATELET COUNT (AUTO) 299 K/uL (150-450); RED BLOOD CELL COUNT(AUTO) 4.02 MIL/uL (4.00-5.20); RED CELL DISTRIBUTION WIDTH 13.9 % (11.5-14.5)
[2022-06-01 23:37] LABS: AMPHET/METH SCREEN,URINE POSITIVE (NEGATIVE); BARBITURATE SCREEN, URINE NEGATIVE (NEGATIVE); BENZODIAZEPINES SCREEN,URINE NEGATIVE (NEGATIVE); CANNABINOID SCREEN,URINE POSITIVE (NEGATIVE); COCAINE SCREEN,URINE NEGATIVE (NEGATIVE); METHADONE SCREEN, URINE NEGATIVE (NEGATIVE); OPIATE SCREEN,URINE NEGATIVE (NEGATIVE); PHENCYCLIDINE SCREEN,URINE NEGATIVE (NEGATIVE)
[2022-06-01 23:38] LABS: ANION GAP 5 mmol/L (8-16); CALCIUM, TOTAL 9.6 mg/dL (8.8-10.5); CARBON DIOXIDE 30 mmol/L (22-29); CHLORIDE 102 mmol/L (98-107); CREATININE 0.86 mg/dL (0.60-1.30); GLUCOSE,RANDOM 78 mg/dL (70-110); POTASSIUM 3.9 mmol/L (3.5-5.1); SODIUM SERUM 137 mmol/L (136-145); UREA NITROGEN, BLOOD 14 mg/dL (7-18)
[2022-06-01 23:41] LABS: GLOMERULAR FILTR. RATE CALC > 60 mL/min (>60)
[2022-06-01 23:44] LABS: ALANINE AMINOTRANSFERASE 19 U/L (12-78); ALBUMIN 4.3 g/dL (3.4-5.0); ALKALINE PHOSPHATASE 75 U/L (46-116); ASPARTATE AMINOTRANSFERASE 18 U/L (15-37); BILIRUBIN,TOTAL 0.7 mg/dL (0.1-1.0); TOTAL PROTEIN, SERUM 8.6 g/dL (6.4-8.2)
[2022-06-01] MEDS ORDERED: LORazepam 1 MG TABLET PO ONE (23:45)
[2022-06-01] MEDS ORDERED: HALOPERIDOL 5 MG TABLET PO ONE (23:45)
[2022-06-02 00:02] LABS: HCG,QUANTITATIVE < 1 mIU/mL (0-6)
[2022-06-02] MEDS ORDERED: RisperiDONE 1 MG TABLET PO ONE (07:45)
[2022-06-02 11:25] VITALS: BP 116/55
== END 2022-06-02 11:32 | disposition home or self-care (01) ==
LOC: EMS 22:57
DX: R45.850 Homicidal ideations (principal); F15.10 Other stimulant abuse, uncomplicated; F20.9 Schizophrenia, unspecified; F17.210 Nicotine dependence, cigarettes, uncomplicated; F12.90 Cannabis use, unspecified, uncomplicated; Z98.890 Other specified postprocedural states
CPT/HCPCS: 99284; 80053; 84702; 85025; 36415; 80307 ×2; G0480

== ENCOUNTER 2022-06-16 22:00 | Emergency (ER) | payer OTHER | END 2022-06-17 00:04 | disposition left against medical advice (07) | LOC: EMS 22:04 | DX: Z53.21 Procedure and treatment not carried out due to patient leaving prior to being seen by health care provider (principal) ==

== ENCOUNTER 2022-08-21 16:29 | Inpatient (IN) | payer MEDICAID, OTHER ==
[~2022-08-21] VITALS: Ht 162.6 cm; Wt 98.9 kg
[2022-08-21 17:52] LABS: BASOPHILS % (AUTO) 0.4 % (0.0-2.0); EOSINOPHILS % (AUTO) 0.2 % (1.0-6.0); HEMATOCRIT 37.1 % (36-46); HEMOGLOBIN 12.3 g/dL (12.0-16.0); LYMPHOCYTES # (AUTO) 1.9 K/uL (1.0-4.8); LYMPHOCYTES % (AUTO) 26.9 % (22.0-44.0); MEAN CORPUSCULAR HEMOGLOBIN 29.9 pg (26.0-34.0); MEAN CORPUSCULAR HGB CONC 33.1 G/dL (31.0-37.0); MEAN CORPUSCULAR VOLUME 91 fL (80-100); MONOCYTES # (AUTO) 0.4 K/uL (0.1-1.0); MONOCYTES % (AUTO) 6.1 % (2.0-9.0); NEUTROPHILS # (AUTO) 4.6 K/uL (1.8-7.7); NEUTROPHILS % (AUTO) 66.4 % (40.0-70.0); PLATELET COUNT (AUTO) 318 K/uL (150-450); RED BLOOD CELL COUNT(AUTO) 4.09 MIL/uL (4.00-5.20); RED CELL DISTRIBUTION WIDTH 14.7 % (11.5-14.5)
[2022-08-21 17:59] LABS: ANION GAP 9 mmol/L (8-16); CALCIUM, TOTAL 9.4 mg/dL (8.8-10.5); CARBON DIOXIDE 26 mmol/L (22-29); CHLORIDE 102 mmol/L (98-107); CREATININE 0.73 mg/dL (0.60-1.30); GLOMERULAR FILTR. RATE CALC > 60 mL/min (>60); GLUCOSE,RANDOM 116 mg/dL (70-110); POTASSIUM 3.5 mmol/L (3.5-5.1); SODIUM SERUM 137 mmol/L (136-145); UREA NITROGEN, BLOOD 9 mg/dL (7-18)
[2022-08-21 18:10] LABS: ALANINE AMINOTRANSFERASE 33 U/L (12-78); ALBUMIN 4.2 g/dL (3.4-5.0); ALKALINE PHOSPHATASE 82 U/L (46-116); ASPARTATE AMINOTRANSFERASE 28 U/L (15-37); BILIRUBIN,TOTAL 0.4 mg/dL (0.1-1.0); HCG,QUANTITATIVE < 1 mIU/mL (0-6); TOTAL PROTEIN, SERUM 8.4 g/dL (6.4-8.2)
[2022-08-21 18:57] LABS: COVID AG,FIA SOURCE NASOPHARYNGEAL
[2022-08-21 20:38] LABS: APPEARANCE,URINE CLEAR (CLEAR); BILIRUBIN,URINE NEGATIVE (NEGATIVE); GLUCOSE, URINE (UA) NEGATIVE (NEGATIVE); KETONES,URINE NEGATIVE (NEGATIVE); LEUKOCYTE ESTERASE ,URINE NEGATIVE (NEGATIVE); NITRATE,URINE NEGATIVE (NEGATIVE); OCCULT BLOOD,URINE NEGATIVE (NEGATIVE); PH,URINE 6.5 (5.0-8.0); PROTEIN,URINE NEGATIVE (NEGATIVE); SPECIFIC GRAVITIY, URINE 1.019 (1.003-1.030); UROBILINOGEN,URINE <=1.0 mg/dL (<=1.0)
[2022-08-21 20:45] LABS: AMPHET/METH SCREEN,URINE POSITIVE (NEGATIVE); BARBITURATE SCREEN, URINE NEGATIVE (NEGATIVE); BENZODIAZEPINES SCREEN,URINE NEGATIVE (NEGATIVE); CANNABINOID SCREEN,URINE NEGATIVE (NEGATIVE); COCAINE SCREEN,URINE NEGATIVE (NEGATIVE); METHADONE SCREEN, URINE NEGATIVE (NEGATIVE); OPIATE SCREEN,URINE NEGATIVE (NEGATIVE); PHENCYCLIDINE SCREEN,URINE NEGATIVE (NEGATIVE)
[2022-08-22] MEDS ORDERED: ACETAMINOPHEN 325 MG TABLET PO PRN (02:00)
[2022-08-22] MEDS ORDERED: LORazepam 2 MG TABLET PO ONE ×2 (02:00→15:00)
[2022-08-22] MEDS ORDERED: DiphenhydrAMINE HCL 25 MG CAPSULE PO ONE ×2 (02:00→15:00)
[2022-08-22] MEDS ORDERED: ZOLPIDEM TARTRATE 10 MG TABLET PO PRN (10:45)
[2022-08-22] MEDS ORDERED: OLANZapine 5 MG RAPDIS TABLET PO PRN (10:45)
[2022-08-22] MEDS ORDERED: LORazepam 2 MG TABLET PO PRN (10:45)
[2022-08-22] MEDS ORDERED: HALOPERIDOL 5 MG TABLET PO ONE (15:00)
[2022-08-22 21:10] VITALS: BP 118/72
[2022-08-23 08:28] VITALS: BP 106/66
[2022-08-23 20:00] VITALS: BP 102/59
[2022-08-23] MEDS: RisperiDONE 2 MG TABLET PO SCH (20:14)
[2022-08-23] MEDS ORDERED: PETROLATUM,WHITE 28 GM JELLY TP PRN (22:15)
[2022-08-23] MEDS ORDERED: CloNIDine HCL 0.1 MG TABLET PO PRN (22:15)
[2022-08-23] MEDS ORDERED: MAGNESIUM HYDROXIDE SUSPENSION 30 ML UDCUP PO PRN (22:15)
[2022-08-23] MEDS ORDERED: DOCUSATE SODIUM 100 MG CAPSULE PO PRN (22:15)
[2022-08-23] MEDS ORDERED: OMEPRAZOLE 20 MG CAPSULE PO PRN (22:15)
[2022-08-23] MEDS ORDERED: ONDANSETRON HCL 4 MG TABLET PO PRN (22:15)
[2022-08-23] MEDS ORDERED: BACITRACIN 28 GM OINTMENT TP PRN (22:15)
[2022-08-23] MEDS ORDERED: IBUPROFEN 600 MG TABLET PO PRN (22:15)
[2022-08-23] MEDS ORDERED: LOPERAMIDE HCL 2 MG CAPSULE PO PRN (22:15)
[2022-08-23] MEDS ORDERED: BENZOCAINE/MENTHOL LOZENGE PO PRN (22:15)
[2022-08-23] MEDS ORDERED: ACETAMINOPHEN 325 MG TABLET PO PRN (22:15)
[2022-08-23] MEDS ORDERED: ALBUTEROL SULFATE HFA 90 MCG/PUFF 8 GM INHALER IH PRN (22:15)
[2022-08-23] MEDS ORDERED: MAG HYDROX/AL HYDROX/SIMETH ES 30 ML SUSPENSION UDCUP PO PRN (22:15)
[2022-08-24 08:20] LABS: FREE T4 (FREE THYROXINE) 0.88 ng/dL (0.76-1.46); THYROID STIMULATING HORMONE 2.78 uIU/mL (0.36-3.74)
[2022-08-24 08:27] VITALS: BP 104/62
[2022-08-24] MEDS: RisperiDONE 2 MG TABLET PO SCH ×2 (08:28→20:19)
[2022-08-24 20:03] VITALS: BP 103/65
[2022-08-25] MEDS: RisperiDONE 2 MG TABLET PO SCH (08:28)
[2022-08-25 08:32] VITALS: BP 104/67
[2022-08-25] MEDS ORDERED: RISP2TAB86 PO (09:46)
== END 2022-08-25 13:30 | disposition home or self-care (01) | DRG 750 ==
LOC: EMS 16:30 → B3A 08-22 18:38
PROVIDERS: ADMIT Psychiatry & Neurology Psychiatry; ATTEND Psychiatry & Neurology Psychiatry
DX: F25.9 Schizoaffective disorder, unspecified (principal); F12.90 Cannabis use, unspecified, uncomplicated; F15.10 Other stimulant abuse, uncomplicated; F17.210 Nicotine dependence, cigarettes, uncomplicated; G47.00 Insomnia, unspecified; F19.10 Other psychoactive substance abuse, uncomplicated; F41.9 Anxiety disorder, unspecified; K59.00 Constipation, unspecified; Z20.822 Contact with and (suspected) exposure to COVID-19
CPT/HCPCS: 80053; 80307; 81003; 84439; 84443; 84702; 85025; 99285; G0480

== ENCOUNTER 2022-09-11 18:03 | Emergency (ER) | payer MEDICAID, OTHER ==
[~2022-09-11] VITALS: Ht 165.1 cm; Wt 100.0 kg
[~2022-09-11 18:03] MED LIST changes: -ACET-66 PO; -IBUP-1554 PO; -PENI500T2 PO
[2022-09-11 18:30] VITALS: BP 164/83
[2022-09-11] MEDS ORDERED: PENI500T2 PO (18:41)
[2022-09-11] MEDS ORDERED: IBUP-45 PO (18:41)
[2022-09-11] MEDS ORDERED: ACET-66 PO (18:41)
[2022-09-11] MEDS ORDERED: ARIP10TA38 PO (18:44)
[2022-09-11] MEDS ORDERED: RISP3TAB35 PO (18:44)
[2022-09-11] MEDS ORDERED: CEPHALEXIN MONOHYDRATE 500 MG CAPSULE PO ONE (18:45)
[2022-09-11] MEDS ORDERED: IBUPROFEN 600 MG TABLET PO ONE (18:45)
[2022-09-11] MEDS ORDERED: ACETAMINOPHEN 500 MG TABLET PO ONE (18:45)
== END 2022-09-11 18:58 | disposition home or self-care (01) ==
LOC: EMS 18:04
DX: K04.7 Periapical abscess without sinus (principal); F25.9 Schizoaffective disorder, unspecified; F15.10 Other stimulant abuse, uncomplicated; F41.9 Anxiety disorder, unspecified; F17.210 Nicotine dependence, cigarettes, uncomplicated; F12.90 Cannabis use, unspecified, uncomplicated; Z98.890 Other specified postprocedural states
CPT/HCPCS: 99284; Z7502; Z7610

== ENCOUNTER 2022-11-04 18:14 | Emergency (ER) | payer OTHER ==
[~2022-11-04] VITALS: Ht 162.6 cm; Wt 127.3 kg
[~2022-11-04 18:14] MED LIST changes: +ACET-66 PO; +ARIP10TA38 PO; +IBUP-45 PO; +PENI500T2 PO; -RISP2TAB86 PO; +RISP3TAB35 PO
[2022-11-04 18:23] VITALS: TEMP 98.5
[2022-11-04] MEDS ORDERED: RISP2TAB45 PO (18:27)
[2022-11-04] MEDS ORDERED: ARIP15TA27 PO (18:27)
[2022-11-04] MEDS ORDERED: AMOX1TAB16 PO (19:05)
[2022-11-04 19:15] VITALS: BP 128/78; PULSE 117; RESP 18
[2022-11-04] MEDS ORDERED: ACETAMINOPHEN 325 MG TABLET PO ONE (19:15)
[2022-11-04] MEDS ORDERED: KETOROLAC TROMETHAMINE 30 MG/ML VIAL IM ONE (19:15)
== END 2022-11-04 19:28 | disposition home or self-care (01) ==
LOC: EMS 18:15
DX: K02.9 Dental caries, unspecified (principal); F41.9 Anxiety disorder, unspecified; F20.9 Schizophrenia, unspecified; N75.0 Cyst of Bartholin's gland; F17.210 Nicotine dependence, cigarettes, uncomplicated; F12.90 Cannabis use, unspecified, uncomplicated; F15.90 Other stimulant use, unspecified, uncomplicated; Z98.890 Other specified postprocedural states
CPT/HCPCS: 99283; 96372; J1885